=== PATIENT | male | born 1990 | race Two or more races ===

== ENCOUNTER 2025-01-03 11:28 | Emergency (ER) | payer MEDICAID, OTHER ==
[~2025-01-03] VITALS: Ht 175.3 cm; Wt 81.8 kg
--- NOTE | 2025-01-03 11:54 | ED.PDOC ---
HPI (NEURO) HPI Comments This is a 34 year old male presenting to the ED with chief complaint of left sided weakness. Patient reports that he has been experiencing left sided weakness since last night, but noticed it more since this morning. Patient relays that it has been difficult to lift his left knee to get up and his left arm is difficult to raise in comparison to his right. Patient admits to using Crystal Meth on Monday. Patient denies any dizziness, headache, chest pain, SOB, or numbness. Chief Complaint: Left Sided Weakness Time Seen by MD: 11:52 Reviewed Notes: Nurses Notes, Medications, Allergies Information Source: Patient Mode of Arrival: Ambulatory Severity: Moderate Dizziness/Weakness Severity: Does not affect activitie Timing: Hours Duration: Since onset Prehospital treatment: None Weakness Location: (L) Sided Onset: At rest Circumstances: Spontaneous Symptoms: Weakness History of: Substance abuse Associated Signs and Symptoms: Weakness Past Medical History PAST MEDICAL HISTORY: Denies Surgical History: Denies all surgeries Family History Family History: Reviewed,noncontributory to illness, Family hx of DM, Family hx of Cancer Social History Smoker: Cigarettes Alcohol: Denies ETOH Use Drugs: Marijuana, Methamphetamine Lives In: Home Constitutional: denies: chills, diaphoresis, fatigue, fever, malaise, sweats, weakness, others EENTM: denies: blurred vision, double vision, ear bleeding, ear discharge, ear drainage, ear pain, ear ringing, eye pain, eye redness, hearing loss, mouth pain, mouth swelling, nasal discharge, nose bleeding, nose congestion, nose pain, photophobia, tearing, throat pain, throat swelling, voice changes, others Respiratory: denies: cough, hemoptysis, orthopnea, SOB at rest, shortness of breath, SOB with excertion, stridor, wheezing, others Cardiovascular: denies: chest pain, dizzy spells, diaphoresis, Dyspnea on exertion, edema, irregular heart beat, left arm pain, lightheadedness, palpitations, PND, syncope, others Gastrointestinal: denies: abdomen distended, abdominal pain, blood streaked bowels, constipated, diarrhea, dysphagia, difficulty swallowing, hematemesis, melena, nausea, poor appetite, poor fluid intake, rectal bleeding, rectal pain, vomiting, others Genitourinary: denies: burning, dysuria, flank pain, frequency, hematuria, incontinence, penile discharge, penile sore, pain, testicle pain, testicle swelling, urgency, others Neurological: reports: left sided weakness; denies: dizziness, fainting, headache, left sided numbness, numbness, paresthesia, pre-existing deficit, right sided numbness, right sided weakness, seizure, speech problems, tingling, tremors, weakness, others Musculoskeletal: denies: back pain, gout, joint pain, joint swelling, muscle pain, muscle stiffness, neck pain, others Integumetry: denies: bruises, change in color, change in hair/nails, dryness, laceration, lesions, lumps, rash, wounds, others Allergic/Immunocompromised: denies: Difficulty Healing, Frequent Infections, Hives, Itching, others Hematologic/Lymphatic: denies: anemia, blood clots, easy bleeding, easy bruising, swollen glands, others Endocrine: denies: excessive hunger, excessive sweating, excessive thirst, excessive urination, flushing, intolerance to cold, intolerance to heat, unexplained weight gain, unexplained weight loss, others Psychiatric: denies: anxiety, bipolar disorder, depression, hopeless, panic disorder, schizophrenia, sleepless, suicidal, others All Other Systems: Reviewed and Negative Physical Exam General Appearance: Moderate Distress HEENT: Normal ENT Inspection, Pharynx Normal, TMs Normal Neck: Full Range of Motion, Non-Tender, Normal, Normal Inspection Respiratory: Chest Non-Tender, Lungs Clear, No Accessory Muscle Use, No Respiratory Distress, Normal Breath Sounds Cardiovascular: No Edema, No JVD, No Murmur, No Gallop, Normal Peripheral Pulses, Regular Rate/Rhythm Breast Exam: Deferred Gastrointestinal: No Organomegaly, Non Tender, No Pulsatile Mass, Normal Bowel Sounds, Soft Genitalia: Deferred Pelvic: Deferred Rectal: Deferred Extremities: No calf tenderness, Normal capillary refill, No pedal edema Musculoskeletal : Apperance: Normal Neurologic: Alert, 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 Was a procedure done?: No Differential Diagnosis (SZ) Seizure: Syncope, Epilepsy-Status CVA: Lyn's Palsy, CVA X-Ray, Labs, Meds, VS Vital Signs Date Time Temp Pulse Resp B/P (MAP) Pulse Ox O2 Delivery O2 Flow Rate FiO2 01/03/25 12:05 102 16 97 Room Air* 0 21 01/03/25 12:05 98.1 102 16 117/82 (94) 97 98.1 01/03/25 11:54 105 01/03/25 11:41 105 01/03/25 11:31 97.6 122 18 125/86 96 97.6 Lab Test 01/03/25 11:55 01/03/25 11:38 Range/Units White Blood Count 9.9 4.4-10.8 10^3/uL Red Blood Count 5.28 4.5-5.90 10^6/uL Hemoglobin 16.3 13.5-17.5 g/dL Hematocrit 48.4 41.0-53.0 % Mean Corpuscular Volume 91.7 80.0-100.0 fL Mean Corpuscular Hemoglobin 30.9 28.0-32.0 pg Mean Corpuscular Hemoglobin Concent 33.7 32.0-36.0 g/dL Red Cell Distribution Width 13.5 11.8-14.3 % Platelet Count 222 140-450 10^3/uL Mean Platelet Volume 10.3 6.9-10.8 fL Neutrophils (%) (Auto) 64.6 37.0-80.0 % Lymphocytes (%) (Auto) 21.2 10.0-50.0 % Monocytes (%) (Auto) 9.9 0.0-12.0 % Eosinophils (%) (Auto) 3.3 0.0-7.0 % Basophils (%) (Auto) 1.0 0.0-2.0 % Neutrophils # (Auto) 6.4 1.6-8.6 10 ^3/uL Lymphocytes # (Auto) 2.1 0.4-5.4 10 ^3/uL Monocytes # (Auto) 1.0 0-1.3 10 ^3/uL Eosinophils # (Auto) 0.3 0-0.8 10 ^3/uL Basophils # (Auto) 0.1 0-0.2 10 ^3/uL Nucleated Red Blood Cells 0.0 % Sodium Level 142 136-145 mmol/L Potassium Level 3.9 3.5-5.1 mmol/L Chloride Level 106 98-107 mmol/L Carbon Dioxide Level 26 20-31 mmol/L Anion Gap 10 5-15 Blood Urea Nitrogen 7 L 9-23 mg/dL Creatinine 0.83 0.700-1.30 mg/dL Glomerular Filtration Rate Calc 119 >90 mL/min BUN/Creatinine Ratio 8.4 L 10.0-20.0 Serum Glucose 93 74-106 mg/dL Calcium Level 9.3 8.7-10.4 mg/dL POC Glucose 97 70-106 mg/dl IV Hep-Lock was established. After examination of the patient we did order a neuro consult by telemedicine They evaluated the patient and they are concerned that the patient may have had a CVA. CAT scan of the head shows: IMPRESSION: 1. Mild global brain atrophy and chronic ischemic changes without evidence of acute intracranial process. 2. Moderate pansinus disease. The patient's CBC is within normal limits The chemistry panel is within normal limits. The patient then expressed that he wanted to leave. We did tell him that we are ordering a CAT scan of the neck and head. The test was ordered but the patient has now decided to sign out AMA. 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 We advise him that he is most likely having a CVA and leaving would be potentially life-threatening. The patient decided to leave any ways The CT angio of head and neck shows: No sign of any abnormalities. The neurologist recommended that the patient have an MRI with and without contrast following the CTA angio The patient has signed out AMA. Images Reviewed?: Images reviewed and evaluated by me Time of 1ST Reevaluation: 14:11 Reevaluation 1ST: Unchanged Patient Education/Counseling: Diagnosis, Treatment, Prognosis Family Education/Counseling: No Family Present Departure 1 Departure Time of Disposition: 14:13 Impression: Primary Impression: Left-sided weakness Additional Impression: Methamphetamine abuse Disposition: 09 ADMITTED INPATIENT Admit to: Tele Condition: Fair Critical Care Note Critical Care Time?: Yes (45 min-critical care time only) Stability Stability form required: Yes Unstable for transfer: Telemetry monitoring (Telemetry monitoring required), ED Physician Assesment (Clinical assesment) Heart Score Heart Score: Heart Score Response (Comments) Value History N/A 0 EKG N/A 0 Age N/A 0 Risk Factors N/A 0 Troponin N/A 0 Total 0 I personally scribed for WAYNE BRITTON MD ([email or web address]) on 01/03/25 at 11:54. El ectronically submitted by Juan Pena ([email or web address]). WAYNE BRITTON MD Jan 03, 2025 11:54
[2025-01-03 12:05] VITALS: BP 117/82; PULSE 102; RESP 16; TEMP 98.1; O2SAT 97
[2025-01-03 12:20] LABS: Hematocrit 48.4 % (41.0-53.0); Hemoglobin 16.3 g/dL (13.5-17.5); Mean Corpuscular Hemoglobin 30.9 pg (28.0-32.0); Mean Corpuscular Volume 91.7 fL (80.0-100.0); Nucleated Red Blood Cells % 0.0 %
[2025-01-03 12:29] LABS: Chloride 106 mmol/L (98-107); Potassium 3.9 mmol/L (3.5-5.1); Sodium 142 mmol/L (136-145)
[2025-01-03 12:30] LABS: Anion Gap 10 (5-15); Calcium 9.3 mg/dL (8.7-10.4); Carbon Dioxide 26 mmol/L (20-31)
[2025-01-03 12:35] LABS: BUN/Creatinine Ratio 8.4 (10.0-20.0); Glucose 93 mg/dL (74-106)
[2025-01-03 12:36] LABS: Blood Urea Nitrogen 7 mg/dL (9-23)
--- NOTE | 2025-01-03 12:41 | DVH ---
EXAM: CT HEAD WITHOUT CONTRAST HISTORY: left side weakness COMPARISON: None TECHNIQUE: Noncontrast axial CT images of the head were performed. Sagittal and coronal reformatted i mages were obtained. This CT exam was performed using 1 or more of the following dose reduction techn iques: Automated exposure control, adjustment of the mA and/or kv according to patient size, or the u se of iterative reconstruction techniques. Radiation Dose: CTDI volume is 58.13 mGy. Dose-length product is 1042 mGy*cm FINDINGS: No intracranial hemorrhage, mass, midline shift, hydrocephalus, or evidence of acute large vessel inf arct. There is mild patchy decreased attenuation in the periventricular white matter, greatest in the right parietal region. There is mild global brain atrophy. There is fluid and/or mucosal thickening throughout the paranasal sinuses, greatest in the ethmoid sinuses. The bilateral mastoid air cells a nd middle ear spaces are clear. No cranial fracture or scalp edema. IMPRESSION: 1. Mild global brain atrophy and chronic ischemic changes without evidence of acute intracranial proc ess. 2. Moderate pansinus disease.
--- NOTE | 2025-01-03 12:47 | BSKYNEURO ---
[place] Neuro Note # Demographics Consult Type: Acute Stroke Level 2 (4.5-24 hrs) Patient Location: Emergency Room First Name: Juan Last Name: Watson Date of : 1990 Age: 34 Gender: Male Facility: [facility] Time of Initial Page (): 01/03/2025 11:53 First Contact with Site (): 01/03/2025 11:54 # HPI History: 34y M with recent methamphetamine use who presents with L sided weakness. No neck pain 9 PM Last Known Normal: 9PM 01/02 # Scores Time of exam and NIHSS (): 01/03/2025 12:00 Level of Consciousness 1a: [0] = Alert; keenly responsive LOC Questions 1b: [0] = Answers both questions correctly LOC Commands 1c: [0] = Performs both tasks correctly Best Gaze 2: [0] = Normal Visual 3: [0] = No visual loss Facial Palsy 4: [0] = Normal symmetrical movements Motor Arm Left 5a: [1] = Drift Motor Arm Right 5b: [0] = No drift Motor Leg Left 6a: [1] = Drift Motor Leg Right 6b: [0] = No drift Limb Ataxia 7: [0] = Absent Sensory 8: [0] = Normal Best Language 9: [0] = No aphasia Dysarthria 10: [0] = Normal Extinction and Inattention 11: [0] = No abnormality NIHSS Total: 2 # Data Time Head CT personally read by me (): 01/03/2025 12:[address]: - sphere shaped hypodensity in the R high parietal lobe # Assessment Impression: - Weakness Differential Diagnosis: - Appearance on imaging is atypical for acute/subacute stroke, would get MRIb wwo contrast to rule out small subacute hemorrhage vs infectious etiology vs mass lesion # Plan Thrombolytic/Intervention: NOT IV Thrombolysis or IA Intervention candidate Thrombolytic Exclusion: > 4.5 hours Intraarterial Exclusion: - clinical exam not consistent with presence of large vessel occlusion (LVO), can reconsider if LVO found on vascular imaging Modified Vigo Scale (mRS) pre-stroke: [0] = No symptoms at all. Imaging: (urgency: STAT): - MRI Brain with AND without contrast Imaging: (urgency: routine): - CT Angiogram Head and CT Angiogram Neck AND call back with results if abnormal Other: - If patient has any neurological deterioration please call me back immediately - I have discussed my recommendations with the referring provider - telemetry monitoring Additional Recommendations: - If MRIb is consistent with subacute stroke would pursue stroke work up and start ASA/Plavix and statin. Given concern this may not be stroke would hold A/Plavix until MRI is done Disposition: admit # Logistics Attestation of consult completion: The patient is located at: [facility]. Facility staff participated in the visit. I performed this telemedicine visit from my offsite office utilizing interactive 2 way audio and visual telecommunication technology at the request of the onsite emergency room provider. Consent: Verbal consent was obtained from the patient and/or family for this encounter. Total time spent in telemedicine encounter: I spent 22 minutes reviewing clinical data and/or imaging, obtaining history, examining the patient, communicating with the onsite care team, and in preparation of this report. # Demographics First Name: Juan Last Name: Watson Facility: [facility] Electronically signed at 01/03/2025 12:46 ([place] Time) by Manoj Boles, Yes MANOJ BOLES DO Jan 03, 2025 12:47
[2025-01-03] MEDS: IOHEXOL 350 MG/ML 100ML IJ ONE (13:25)
--- NOTE | 2025-01-03 13:58 | DVH ---
INDICATION: CVA COMPARISON: None TECHNIQUE:CTA head and neck with intravenous contrast. 3D/MIP image postprocessing was performed and images were used for interpretation and reporting. Radiation Dose Information: CT Dose: CTDI volume is 22.38 mGy. Dose-length product is 3.16 mGy*cm FINDINGS: Neck: Normal 3-vessel origin left-sided aortic arch. Artifact and adjacent venous structure limits evaluati on of the right subclavian artery. Otherwise, the bilateral subclavian arteries, bilateral common ca rotid arteries and bilateral cervical iCAs unremarkable. Bilateral cervical vertebral arteries are unremarkable with left dominant vertebral artery. CTA head: Bilateral ACAS, anterior communicating artery, bilateral MCAs and bilateral intracranial ICAs are unr emarkable. Bilateral decal maker, bilateral superior cerebellar arteries, basilar artery and bilateral intracranial sophia tebral arteries are unremarkable. The dural venous sinuses opacify normally. No abnormal intracranial enhancement. Pansinus mucoperiosteal thickening. Thyroid gland is unremarkable. The lung apices are clear. IMPRESSION: No hemodynamically significant stenosis, aneurysm or dissection involving the major intracranial and neck vessels.
--- NOTE | 2025-01-03 15:02 | ECG ---
[facility] Test Date: 2025-01-03 Test Time: 11:41:02 Pat Name: AT GLASS Department: ED Room: Gender: M Echo Technician: elizabeth : 1990 Requested By: RAE AVELAR Order Number: [id number] Reading MD: Tylor Conde Measurements Intervals [place] Rate: 105 P: 54 KS: 164 QRS: 125 QRSD: 90 T: 18 QT: 339 QTc: 449 Interpretive Statements Sinus tachycardia Right axis deviation Baseline wander in lead(s) V1,V2,V3 Electronically Signed On 01-06-2025 18:43:42 PDT by Tylor Conde Please click the below link to view image of tracing.
== END 2025-01-03 14:00 | disposition left against medical advice (07) ==
LOC: ER 11:28
DX: R53.1 Weakness (principal); I63.9 Cerebral infarction, unspecified; F15.10 Other stimulant abuse, uncomplicated; F17.210 Nicotine dependence, cigarettes, uncomplicated; F12.90 Cannabis use, unspecified, uncomplicated
CPT/HCPCS: 36415; 70450; 70496; 70498; 80048; 82962; 85025; 93005; 99285; Q9967

== ENCOUNTER 2025-03-20 13:54 | Inpatient (IN) | payer MEDICAID ==
[~2025-03-20] VITALS: Ht 180.3 cm; Wt 103.0 kg
--- NOTE | 2025-03-20 14:41 | ED.PDOC ---
HPI (NEURO) HPI Comments 34 y/o M, with PMHx of polysubstance abuse presents to the ED for CC of facial pain. Patient states, he has been experiencing right -sided facial numbness x3days. Patient reports, experiencing prior episodes in the past with most recent being in December 2024. Patient denies headache, fever, chills, loss of balance, or difficult speech. Chief Complaint: Face pain Time Seen by MD: 14:35 Reviewed Notes: Nurses Notes, Medications, Allergies Information Source: Patient Mode of Arrival: Ambulatory Severity: Moderate Timing: Days Duration: Intermittent Prehospital treatment: None Numbness Location: Facial (right sided) Onset: At rest Circumstances: Spontaneous Symptoms: Numbness Before: Normal During: Awake After: Normal Mentation History of: None Modifying factors: Nothing Associated Signs and Symptoms: Numbness Past Medical History PAST MEDICAL HISTORY: Denies Surgical History: Denies all surgeries Family History Family History: Reviewed,noncontributory to illness, Family hx of DM, Family hx of Cancer Social History Smoker: Cigarettes Alcohol: Denies ETOH Use Drugs: Marijuana, Methamphetamine Lives In: Home Constitutional: denies: chills, diaphoresis, fatigue, fever, malaise, sweats, weakness, others EENTM: denies: blurred vision, double vision, ear bleeding, ear discharge, ear drainage, ear pain, ear ringing, eye pain, eye redness, hearing loss, mouth pain, mouth swelling, nasal discharge, nose bleeding, nose congestion, nose pain, photophobia, tearing, throat pain, throat swelling, voice changes, others Respiratory: denies: cough, hemoptysis, orthopnea, SOB at rest, shortness of breath, SOB with excertion, stridor, wheezing, others Cardiovascular: denies: chest pain, dizzy spells, diaphoresis, Dyspnea on exertion, edema, irregular heart beat, left arm pain, lightheadedness, palpitations, PND, syncope, others Gastrointestinal: denies: abdomen distended, abdominal pain, blood streaked bowels, constipated, diarrhea, dysphagia, difficulty swallowing, hematemesis, melena, nausea, poor appetite, poor fluid intake, rectal bleeding, rectal pain, vomiting, others Genitourinary: denies: burning, dysuria, flank pain, frequency, hematuria, incontinence, penile discharge, penile sore, pain, testicle pain, testicle swelling, urgency, others Neurological: reports: others (right facial numbness); denies: dizziness, fainting, headache, left sided numbness, left sided weakness, numbness, paresthesia, pre-existing deficit, right sided numbness, right sided weakness, seizure, speech problems, tingling, tremors, weakness Musculoskeletal: denies: back pain, gout, joint pain, joint swelling, muscle pain, muscle stiffness, neck pain, others Integumetry: denies: bruises, change in color, change in hair/nails, dryness, laceration, lesions, lumps, rash, wounds, others Allergic/Immunocompromised: denies: Difficulty Healing, Frequent Infections, Hives, Itching, others Hematologic/Lymphatic: denies: anemia, blood clots, easy bleeding, easy bruising, swollen glands, others Endocrine: denies: excessive hunger, excessive sweating, excessive thirst, excessive urination, flushing, intolerance to cold, intolerance to heat, unexplained weight gain, unexplained weight loss, others Psychiatric: denies: anxiety, bipolar disorder, depression, hopeless, panic disorder, schizophrenia, sleepless, suicidal, others All Other Systems: Reviewed and Negative Physical Exam General Appearance: No Apparent Distress, Normal HEENT: Normal ENT Inspection, Pharynx Normal Neck: Full Range of Motion, Non-Tender, Normal, Normal Inspection Respiratory: Chest Non-Tender, Lungs Clear, No Accessory Muscle Use, No Respiratory Distress, Normal Breath Sounds Cardiovascular: No Edema, No Murmur, No Gallop, Normal Peripheral Pulses, Regular Rate/Rhythm Breast Exam: Deferred Gastrointestinal: No Organomegaly, Non Tender, No Pulsatile Mass, Normal Bowel Sounds, Soft Genitalia: Deferred Pelvic: Deferred Rectal: Deferred Extremities: No calf tenderness, Normal capillary refill, Normal inspection, Normal range of motion, Non-tender, No pedal edema Musculoskeletal : Apperance: Normal Neurologic: Alert, engraver signature II-XII nml as Tested, No Motor Deficits, Normal Affect, Normal Mood, No Sensory Deficits Cerebellar Function: Normal Reflexes: Normal Skin: Dry, Normal Color, Warm Lymphatic: No Adenopathy Was a procedure done? Was a procedure done?: No Differential Diagnosis (SZ) General Weakness: Dehydration, Electrolyte imbalance X-Ray, Labs, Meds, VS Vital Signs Date Time Temp Pulse Resp B/P (MAP) Pulse Ox O2 Delivery O2 Flow Rate FiO2 03/20/25 14:02 97.5 100 18 114/79 98 97.5 Lab Test 03/20/25 14:37 Range/Units White Blood Count 8.7 4.4-10.8 10^3/uL Red Blood Count 5.24 4.5-5.90 10^6/uL Hemoglobin 16.4 13.5-17.5 g/dL Hematocrit 49.0 41.0-53.0 % Mean Corpuscular Volume 93.4 80.0-100.0 fL Mean Corpuscular Hemoglobin 31.4 28.0-32.0 pg Mean Corpuscular Hemoglobin Concent 33.6 32.0-36.0 g/dL Red Cell Distribution Width 13.5 11.8-14.3 % Platelet Count 213 140-450 10^3/uL Mean Platelet Volume 10.1 6.9-10.8 fL Neutrophils (%) (Auto) 72.0 37.0-80.0 % Lymphocytes (%) (Auto) 14.8 10.0-50.0 % Monocytes (%) (Auto) 7.3 0.0-12.0 % Eosinophils (%) (Auto) 5.3 0.0-7.0 % Basophils (%) (Auto) 0.6 0.0-2.0 % Neutrophils # (Auto) 6.3 1.6-8.6 10 ^3/uL Lymphocytes # (Auto) 1.3 0.4-5.4 10 ^3/uL Monocytes # (Auto) 0.6 0-1.3 10 ^3/uL Eosinophils # (Auto) 0.5 0-0.8 10 ^3/uL Basophils # (Auto) 0.1 0-0.2 10 ^3/uL Nucleated Red Blood Cells 0.0 % Sodium Level 141 136-145 mmol/L Potassium Level 4.6 3.5-5.1 mmol/L Chloride Level 104 98-107 mmol/L Carbon Dioxide Level 29 20-31 mmol/L Anion Gap 8 5-15 Blood Urea Nitrogen 15 9-23 mg/dL Creatinine 1.00 0.700-1.30 mg/dL Glomerular Filtration Rate Calc 103 >90 mL/min BUN/Creatinine Ratio 15.0 10.0-20.0 Serum Glucose 89 74-106 mg/dL Calcium Level 9.8 8.7-10.4 mg/dL Troponin I High Sensitivity < 3 L </=54 ng/L [address] [address] Ph: [phone] DIAGNOSTIC IMAGING Diagnostic Imaging Report : [id number] Signed PATIENT: TA GLASS AACCT: [id number] UNIT: [id number] : 1990 LOC: ER ROOM / BED: / AGE / SEX: 34 / M ADM STATUS: REG ER SERVICE 1426 ORDERING PHYSICIAN: CELINE WALTERS MD PROCEDURE(s): CXRP - CHEST PORTABLE REASON: facial numbness ORDER NUMBER(s): [id number], ACCESSION NUMBER(s): [id number] CHEST RADIOGRAPH Indication: facial numbness Technique: Single frontal view of the chest was obtained Comparison: None FINDINGS: Lines and Tubes: None Lungs: No focal consolidation. Pleura: No effusion. No pneumothorax. Cardiomediastinal contours: Cardiac size upper limits of normal may be due to positioning or technique. Bones: No acute osseous abnormality. IMPRESSION: 1. No acute cardiopulmonary disease. ATED BY: RAJINDER ANNA Jr., DO DICTATED DATE/TIME: 03/20/251510 SIGNED BY: RAJINDER ANNA Jr., DO SIGNED DATE/TIME: 03/20/251510 CC: [address] [address] Ph: [phone] DIAGNOSTIC IMAGING Diagnostic Imaging Report : [id number] Signed PATIENT: TA GLASS AACCT: [id number] UNIT: [id number] : 1990 LOC: ER ROOM / BED: / AGE / SEX: 34 / M ADM STATUS: REG ER SERVICE 1436 ORDERING PHYSICIAN: CELINE WALTERS MD PROCEDURE(s): HWOCT - HEAD WITHOUT CONTRAST REASON: facial numbness ORDER NUMBER(s): [id number], ACCESSION NUMBER(s): [id number] EXAM: CT HEAD WITHOUT CONTRAST INDICATION: facial numbness TECHNIQUE: CT images of the head were obtained without administration of IV contrast. CT scans at this facility use dose modulation, iterative reconstruction, and/or weight based dosing when appropriate to reduce radiation dose to as low as reasonably achievable. COMPARISON: CT ANGIO HEAD/NECK on DOS: 01/03/25 FINDINGS: PARENCHYMA: No acute hemorrhage. There is no mass effect, midline shift, or herniation. There is preservation of the avila white differentiation. Small area of hypoattenuation of the right posterior hinson radiata. consider correlation with clinical exam. Consider further evaluation with MRI if clinically indicated. Differential also includes demyelination VENTRICLES: No hydrocephalus. EXTRA-AXIAL SPACES: No extra-axial fluid collections. OTHER: The bony structures are intact. Moderate scattered paranasal sinus mucosal thickening. IMPRESSION: 1. No CT evidence of an acute intracranial abnormality. Small indeterminate area of hypoattenuation of the right posterior hinson radiata. consider correlation with clinical exam. Consider further evaluation with MRI if clinically indicated. Differential includes demyelination given patient's age. ATED BY: JEROME UREÑA MD DICTATED DATE/TIME: 03/20/25 153 SIGNED BY: JEROME UREÑA MD SIGNED DATE/TIME: 03/20/25 153 CC: Time of 1ST Reevaluation: 15:05 Reevaluation 1ST: Unchanged Patient Education/Counseling: Diagnosis, Treatment Family Education/Counseling: No Family Present Departure 1 Departure Time of Disposition: 17:56 (CT head and x-ray and EKG he had labs are benign.Patient with suspected TIA possible multiple sclerosis and numbness tingling of the face) Impression: Primary Impression: Facial numbness Additional Impression: Generalized weakness Disposition: ADMITTED INPATIENT Admit to: Med Surg Condition: Guarded Critical Care Note Critical Care Time?: No Stability Stability form required: No Heart Score Heart Score: Heart Score Response (Comments) Value History N/A 0 EKG N/A 0 Age N/A 0 Risk Factors N/A 0 Troponin N/A 0 Total 0 I personally scribed for CELINE WALTERS MD ([email or web address]) on 03/20/25 at 14:41. Electronically submitted by Neyda Denson ([email or web address]). I personally scribed for CELINE WALTERS MD ([email or web address]) on 03/20/25 at 15:38. Electronically submitted by Neyda Denson ([email or web address]). I personally scribed for CELINE WALTERS MD ([email or web address]) on 03/20/25 at 15:39. Electronically submitted by Neyda Denson ([email or web address]). CELINE WALTERS MD Mar 20, 2025 14:41
[2025-03-20 14:45] LABS: Hematocrit 49.0 % (41.0-53.0); Hemoglobin 16.4 g/dL (13.5-17.5); Mean Corpuscular Hemoglobin 31.4 pg (28.0-32.0); Mean Corpuscular Volume 93.4 fL (80.0-100.0); Nucleated Red Blood Cells % 0.0 %
[2025-03-20 14:59] LABS: Chloride 104 mmol/L (98-107); Potassium 4.6 mmol/L (3.5-5.1); Sodium 141 mmol/L (136-145)
[2025-03-20 15:00] LABS: Anion Gap 8 (5-15); Carbon Dioxide 29 mmol/L (20-31)
[2025-03-20 15:01] LABS: Calcium 9.8 mg/dL (8.7-10.4)
[2025-03-20 15:05] LABS: BUN/Creatinine Ratio 15.0 (10.0-20.0); Blood Urea Nitrogen 15 mg/dL (9-23); Glucose 89 mg/dL (74-106)
--- NOTE | 2025-03-20 15:13 | DVH ---
CHEST RADIOGRAPH Indication: facial numbness Technique: Single frontal view of the chest was obtained Comparison: None FINDINGS: Lines and Tubes: None Lungs: No focal consolidation. Pleura: No effusion. No pneumothorax. Cardiomediastinal contours: Cardiac size upper limits of normal may be due to positioning or technique. Bones: No acute osseous abnormality. IMPRESSION: 1. No acute cardiopulmonary disease.
--- NOTE | 2025-03-20 15:32 | DVH ---
EXAM: CT HEAD WITHOUT CONTRAST INDICATION: facial numbness TECHNIQUE: CT images of the head were obtained without administration of IV contrast. CT scans at this facility use dose modulation, iterative reconstruction, and/or weight based dosing when appropriate to reduce radiation dose to as low as reasonably achievable. COMPARISON: CT ANGIO HEAD/NECK on DOS: 01/03/25 FINDINGS: PARENCHYMA: No acute hemorrhage. There is no mass effect, midline shift, or herniation. There is preservation of the avila white differentiation. Small area of hypoattenuation of the right posterior hinosn radiata. consider correlation with clinical exam. Consider further evaluation with MRI if clinically indicated. Differential also includes demyelination VENTRICLES: No hydrocephalus. EXTRA-AXIAL SPACES: No extra-axial fluid collections. OTHER: The bony structures are intact. Moderate scattered paranasal sinus mucosal thickening. IMPRESSION: 1. No CT evidence of an acute intracranial abnormality. Small indeterminate area of hypoattenuation of the right posterior hinson radiata. consider correlation with clinical exam. Consider further evaluation with MRI if clinically indicated. Differential includes demyelination given patient's age.
[2025-03-20] MEDS ORDERED: ACETAMINOPHEN 325 MG TAB PO PRN (19:15)
--- NOTE | 2025-03-20 20:03 | DVHHP2 ---
YESENIA TejadaSHABNAM RESIDENT 03/20/25 2003: History of Present Illness History of Present Illness 34-year-old male with no significant past medical history who presents after three days of intermittent facial numbness. He denies headache, vision changes, fever, chills, weakness, gait imbalance, or speech difficulty. He reports recent consumption of marijuana and methamphetamines; urine drug screen is positive for methamphetamines, benzodiazepines, and cannabinoids. No prior episodes. Physical exam in the ED is normal, including full neurologic exam. Labs including CBC and BMP are unremarkable. Head CT is normal. He is admitted for neurologic evaluation to rule out a transient ischemic process, though the presentation is more consistent with effects related to polysubstance use. PMHx: None reported. PSHx: None reported. Social History: Polysubstance use including marijuana and methamphetamines. Denies tobacco and alcohol use when asked. Lives at home; no occupational exposures. ROS: Negative except as noted in HPI. Review of Systems Allergies: Coded Allergies: NO KNOWN ALLERGIES (Unverified , 01/03/25) Medications Current Medications Medications Dose Ordered Sig/Chris Route Start Time Stop Time Status Last Admin Dose Admin Sodium Chloride 1,000 ml @ 60 mls/hr [id number] IV 03/20/25 19:15 Acetaminophen 650 mg Q6HP PRN PO 03/20/25 19:15 Exam Vital Signs Vital Signs Date Time Temp Pulse Resp B/P (MAP) Pulse Ox O2 Delivery O2 Flow Rate FiO2 03/20/25 18:14 97 Room Air* 0 21 03/20/25 18:06 97.6 102 17 116/82 (93) 97.6 Exam General: Alert, in no acute distress. HEENT: Normal. Neck: Supple. CV: Regular rate and rhythm. Resp: Clear to auscultation. Abd: Soft, nontender. Ext: No edema. Neuro: Cranial nerves intact, no focal deficits, normal gait and coordination. Skin: Warm, dry. Labs/Xrays Labs Test 03/20/25 19:48 03/20/25 14:37 Range/Units White Blood Count 8.7 4.4-10.8 10^3/uL Red Blood Count 5.24 4.5-5.90 10^6/uL Hemoglobin 16.4 13.5-17.5 g/dL Hematocrit 49.0 41.0-53.0 % Mean Corpuscular Volume 93.4 80.0-100.0 fL Mean Corpuscular Hemoglobin 31.4 28.0-32.0 pg Mean Corpuscular Hemoglobin Concent 33.6 32.0-36.0 g/dL Red Cell Distribution Width 13.5 11.8-14.3 % Platelet Count 213 140-450 10^3/uL Mean Platelet Volume 10.1 6.9-10.8 fL Neutrophils (%) (Auto) 72.0 37.0-80.0 % Lymphocytes (%) (Auto) 14.8 10.0-50.0 % Monocytes (%) (Auto) 7.3 0.0-12.0 % Eosinophils (%) (Auto) 5.3 0.0-7.0 % Basophils (%) (Auto) 0.6 0.0-2.0 % Neutrophils # (Auto) 6.3 1.6-8.6 10 ^3/uL Lymphocytes # (Auto) 1.3 0.4-5.4 10 ^3/uL Monocytes # (Auto) 0.6 0-1.3 10 ^3/uL Eosinophils # (Auto) 0.5 0-0.8 10 ^3/uL Basophils # (Auto) 0.1 0-0.2 10 ^3/uL Nucleated Red Blood Cells 0.0 % Sodium Level 141 136-145 mmol/L Potassium Level 4.6 3.5-5.1 mmol/L Chloride Level 104 98-107 mmol/L Carbon Dioxide Level 29 20-31 mmol/L Anion Gap 8 5-15 Blood Urea Nitrogen 15 9-23 mg/dL Creatinine 1.00 0.700-1.30 mg/dL Glomerular Filtration Rate Calc 103 >90 mL/min BUN/Creatinine Ratio 15.0 10.0-20.0 Serum Glucose 89 74-106 mg/dL Hemoglobin A1c 5.4 <5.7 % A1C Calcium Level 9.8 8.7-10.4 mg/dL Troponin I High Sensitivity < 3 L </=54 ng/L SEPSIS Sepsis Screen Date sepsis recognized/suspect: Mar 20, 2025 Time Sepsis recognized/suspect: 1825 Recent Procedure: No On Antibiotic Therapy: No Respiratory Rate >20: No Heart Rate >90: No Temp<36 C (96.8 F) or >38.3 C: No SBP <90 or MAP <65 mmHG: No New Acute Mental Status Change: No Is the patient on CPAP, BIPAP,: No Physician Orders Urinalysis (03/20/25 14:26) Chest Portable (03/20/25 14:26) Head Without Contrast (03/20/25 14:36) Admit (03/20/25 19:08) Code Status (03/20/25 19:08) Vital Signs .PER UNIT PROTOCOL (03/20/25 19:08) Review Orders With Adm.Md (03/20/25 19:08) Regular Diet (03/21/25 Breakfast) Sodium Chloride 0.9% (03/20/25 19:15) Acetaminophen Tablet (Tylenol Tablet) (03/20/25 19:15) Notify Md Of Changes From Base (03/20/25 19:08) Advance Directive (03/20/25 19:08) Patient Condition (03/20/25 19:08) Allergies (03/20/25 19:08) Drug Screen (03/20/25 19:08) Oxygen By Nasal Cannula (03/20/25 19:08) Stat Ekg For Chest Pain (03/20/25 19:08) Notify Md Of Changes From Base (03/20/25 19:08) Label Designer For 24 Hours (03/20/25 19:08) Emergency Dysrhythmia Protocol (03/20/25 19:08) Rhythm Strips Once Every Shift (03/20/25 19:08) Vital Signs Date Time Temp Pulse Resp B/P (MAP) Pulse Ox O2 Delivery O2 Flow Rate FiO2 03/20/25 18:14 97 Room Air* 0 21 03/20/25 18:06 97.6 102 17 116/82 (93) 99 97.6 03/20/25 14:02 97.5 100 18 114/79 98 97.5 Laboratory Tests Test 03/20/25 14:37 White Blood Count 8.7 10^3/uL (4.4-10.8) Assessment/Plan Assessment/Plan # Rule out Transient ischemic attack Normal neurologic exam and normal HCT, but facial paresthesias prompt admission for neurologic observation. Maintain normal BP parameters and monitor for any new neurologic deficits. # Polysubstance abuse Likely contributor to his sensory complaints given methamphetamine and cannabinoid exposure. Supportive care with IV fluids and symptomatic management. Counseling regarding substance use # Benzodiazepine exposure Positive urine tox without clear source; patient clinically stable. Continue monitoring for sedation, respiratory depression, or withdrawal symptoms # Cannabis use disorder Chronic use with contribution to current presentation possible. Provide education and outpatient follow-up for substance-use counseling. Case discussed with Dr Jackson Plan discussed with: Patient, Other My Orders Orders - SHABNAM MURO RESIDENT Procedure Category Date Status Time Admit ADMIT 03/20/25 Transmitted 19:08 Code Status CODE 03/20/25 Transmitted 19:08 Vital Signs [facility] 03/20/25 In Process 19:08 Review Orders With [facility] 03/20/25 In Process Adm.Md 19:08 Regular Diet DIET 03/21/25 Transmitted Breakfast Sodium Chloride 0.9% [facility] 03/20/25 In Process 19:15 Acetaminophen Tablet [facility] 03/20/25 In Process (Tylenol Tablet) 19:15 Notify Md Of Changes [facility] 03/20/25 In Process From Base 19:08 Advance Directive [facility] 03/20/25 In Process 19:08 Patient Condition ORDERS 03/20/25 Transmitted 19:08 Allergies [facility] 03/20/25 In Process 19:08 Drug Screen LAB 03/20/25 In Process 19:08 Oxygen By Nasal RT 03/20/25 Transmitted Cannula 19:08 Stat Ekg For Chest [facility] 03/20/25 In Process Pain 19:08 Notify Md Of Changes [facility] 03/20/25 In Process From Base 19:08 Label Designer For [facility] 03/20/25 In Process 24 Hours 19:08 Emergency Dysrhythmia [facility] 03/20/25 In Process Protocol 19:08 Rhythm Strips Once [facility] 03/20/25 In Process Every Shift 19:08 Date of Service: Mar 20, 2025 Billing Provider: MICK JACKSON MD Common Visit Codes: [id number] INP/OBS CARE (HIGH) MICK JACKSON MD 03/21/25 1504: Review of Systems Allergies: Coded Allergies: NO KNOWN ALLERGIES (Unverified , 01/03/25) Common Visit Codes: [id number] INP/OBS CARE (HIGH) Secondary Visit Codes: [id number] CARE PLAN 30 MINUTES SHABNAM MURO Mar 20, 2025 20:03 MICK JACKSON MD Mar 21, 2025 15:04
[2025-03-20 20:23] LABS: Benzodiazephine Screen, Urine Pos (NEGATIVE)
[2025-03-20 20:24] LABS: Cannabinoid Screen, Urine Pos (NEGATIVE)
[2025-03-20 20:50] VITALS: BP 115/58; PULSE 89; RESP 18; TEMP 98.2; O2SAT 98
[2025-03-20 21:18] LABS: Amphetamine Screen, Urine Pos (NEGATIVE); Barbiturate Scree,Urine Neg (NEGATIVE); Cocaine Screen, Urine Neg (NEGATIVE); Opiate Scree,Urine Neg (NEGATIVE); Phencyclidine Screen, Urine Neg (NEGATIVE)
[2025-03-20 21:21] LABS: Urine Protein, UAD TRACE (Negative)
[2025-03-20 21:47] VITALS: BP 120/72; PULSE 90; PULSE 94; RESP 18; TEMP 98.4; O2SAT 98
[2025-03-21 01:00] VITALS: BP 98/68; PULSE 83; RESP 18; TEMP 98.2; O2SAT 100
[2025-03-21 03:37] LABS: Hematocrit 46.6 % (41.0-53.0); Hemoglobin 15.4 g/dL (13.5-17.5); Mean Corpuscular Hemoglobin 31.2 pg (28.0-32.0); Mean Corpuscular Volume 94.4 fL (80.0-100.0); Nucleated Red Blood Cells % 0.1 %
[2025-03-21 03:45] VITALS: BP 112/73; PULSE 72; RESP 17; TEMP 98.2; O2SAT 96
[2025-03-21] MEDS: SODIUM CHLORIDE 0.9% 1,000 ML IV SCH (03:45)
[2025-03-21 03:51] LABS: Alanine Aminotransferase 29 U/L (7-40); Albumin 4.2 g/dL (3.2-4.8); Alkaline Phosphatase 65 U/L (46-116); Anion Gap 7 (5-15); BUN/Creatinine Ratio 14.1 (10.0-20.0); Bilirubin, Total 0.9 mg/dL (0.2-1.0); Blood Urea Nitrogen 14 mg/dL (9-23); Calcium 9.3 mg/dL (8.7-10.4); Carbon Dioxide 31 mmol/L (20-31); Chloride 103 mmol/L (98-107); Glucose 101 mg/dL (74-106); Potassium 4.2 mmol/L (3.5-5.1); Sodium 141 mmol/L (136-145); Total Protein 6.8 g/dL (5.7-8.2)
[2025-03-21 05:00] VITALS: BP 102/64; PULSE 86; RESP 18; TEMP 98.8; O2SAT 94
[2025-03-21] MEDS: ATORVASTATIN 20 MG TAB PO SCH (08:30)
[2025-03-21] MEDS: PANTOPRAZOLE 40 MG TAB PO SCH (08:30)
[2025-03-21 09:00] VITALS: BP 102/69; PULSE 86; RESP 20; TEMP 98; O2SAT 94
[2025-03-21] MEDS ORDERED: FAMO-12 PO (12:19)
[2025-03-21] MEDS ORDERED: ATOR20TA50 PO (12:19)
[2025-03-21] MEDS ORDERED: ASPI-498 PO (12:19)
[2025-03-21 12:51] VITALS: TEMP 36.7
--- NOTE | 2025-03-21 15:48 | DVHDSRES ---
Discharge Summary Date of Admission Resident Creating Document: SANDOR ALCALA RESIDENT Mar 20, 2025 at 19:08 Date of Discharge: Mar 21, 2025 Admitting Diagnosis Suspected TIA Labs/Diagnostic Data: Laboratory Results Test 03/21/25 03:13 03/20/25 19:48 03/20/25 14:37 White Blood Count 8.7 10^3/uL (4.4-10.8) Red Blood Count 4.94 10^6/uL (4.5-5.90) Hemoglobin 15.4 g/dL (13.5-17.5) Hematocrit 46.6 % (41.0-53.0) Mean Corpuscular Volume 94.4 fL (80.0-100.0) Mean Corpuscular Hemoglobin 31.2 pg (28.0-32.0) Mean Corpuscular Hemoglobin Concent 33.0 g/dL (32.0-36.0) Red Cell Distribution Width 13.6 % (11.8-14.3) Platelet Count 196 10^3/uL (140-450) Mean Platelet Volume 10.6 fL (6.9-10.8) Neutrophils (%) (Auto) 49.2 % (37.0-80.0) Lymphocytes (%) (Auto) 32.6 % (10.0-50.0) Monocytes (%) (Auto) 10.7 % (0.0-12.0) Eosinophils (%) (Auto) 6.5 % (0.0-7.0) Basophils (%) (Auto) 1.0 % (0.0-2.0) Neutrophils # (Auto) 4.3 10 ^3/uL (1.6-8.6) Lymphocytes # (Auto) 2.8 10 ^3/uL (0.4-5.4) Monocytes # (Auto) 0.9 10 ^3/uL (0-1.3) Eosinophils # (Auto) 0.6 10 ^3/uL (0-0.8) Basophils # (Auto) 0.1 10 ^3/uL (0-0.2) Nucleated Red Blood Cells 0.1 % Sodium Level 141 mmol/L (136-145) Potassium Level 4.2 mmol/L (3.5-5.1) Chloride Level 103 mmol/L (98-107) Carbon Dioxide Level 31 mmol/L (20-31) Anion Gap 7 (5-15) Blood Urea Nitrogen 14 mg/dL (9-23) Creatinine 0.99 mg/dL (0.700-1.30) Glomerular Filtration Rate Calc 104 mL/min (>90) BUN/Creatinine Ratio 14.1 (10.0-20.0) Serum Glucose 101 mg/dL (74-106) Calcium Level 9.3 mg/dL (8.7-10.4) Magnesium Level 2.2 mg/dL (1.6-2.6) Total Bilirubin 0.9 mg/dL (0.2-1.0) Aspartate Amino Transferase (AST) 18 U/L (13-40) Alanine Aminotransferase (ALT) 29 U/L (7-40) Alkaline Phosphatase 65 U/L (46-116) Total Protein 6.8 g/dL (5.7-8.2) Albumin 4.2 g/dL (3.2-4.8) Vitamin B12 Level 963 pg/mL (211-911) Vitamin D 25-Hydroxy 25.3 ng/mL (30.0-100) Folic Acid 15.49 ng/mL (>5.38) Thyroid Stimulating Hormone (TSH) 0.37 uIU/mL (0.55-4.78) Urine Color Yellow (Yellow) Urine Clarity Turbid (Clear) Urine pH 5.5 (5.0-9.0) Urine Specific [place] 1.022 (1.001-1.035) Urine Protein Trace (Negative) Urine Ketones 2+ (Negative) Urine Blood Negative /uL (Negative) Urine Nitrite Negative (Negative) Urine Bilirubin Negative (Negative) Urine Urobilinogen Normal mg/dL (Negative) Urine Leukocyte Esterase Negative /uL (Negative) Urine RBC 2 /hpf (0 - 3) Urine Microscopic WBC 5 /HPF (0-3) Urine Squamous Epithelial Cells None seen /hpf (<5) Urine Bacteria None seen /hpf (None Seen) Urine Mucus Many (None Seen) Urine Glucose Normal mg/dL (Normal) Urine Opiates Screen Neg (NEGATIVE) Urine Fentanyl Screen Neg (NEGATIVE) Urine Barbiturates Screen Neg (NEGATIVE) Urine Phencyclidine Screen Neg (NEGATIVE) Urine Amphetamines Screen Pos (NEGATIVE) Urine Benzodiazepines Screen Pos (NEGATIVE) Urine Cocaine Screen Neg (NEGATIVE) Urine Cannabinoids Screen Pos (NEGATIVE) Hemoglobin A1c 5.4 % A1C (<5.7) Troponin I High Sensitivity < 3 ng/L (</=54) Other Laboratory Tests 03/21/25 03:13 Brief Hx & Hospital Course: 34-year-old male with no significant past medical history who presents after three days of intermittent facial numbness. He denies headache, vision changes, fever, chills, weakness, gait imbalance, or speech difficulty. He reports recent consumption of marijuana and methamphetamines; urine drug screen is positive for methamphetamines, benzodiazepines, and cannabinoids. No prior episodes. Physical exam in the ED is normal, including full neurologic exam. Labs including CBC and BMP are unremarkable. Head CT showed no intracranial pathology. UDS positive for methamphetamine, benzos, cannabinoids. TSH 0.3, vitamin-D 25.3, urinalysis negative for UTI. Neurology examination no deficits noted, patient was treated conservatively. patient was discharged with aspirin 81 mg p.o. daily and atorvastatin 20 mg p.o. q.h.s.. Patient was advised to follow up DC clinic/PCP/Neurology. Patient was hemodynamically stable on discharge. All questions answered. General: Alert, in no acute distress. HEENT: Normal. Neck: Supple. CV: Regular rate and rhythm. Resp: Clear to auscultation. Abd: Soft, nontender. Ext: No edema. Neuro: Cranial nerves intact, no focal deficits, normal gait and coordination. Plan of care discussed with Dr. Jackson Operations or Procedures [place] [id number] Ph: [phone] DIAGNOSTIC IMAGING Diagnostic Imaging Report : [id number] Signed PATIENT: TA GLASS AACCT: [id number] UNIT: [id number] : 1990 LOC: ER ROOM / BED: / AGE / SEX: 34 / M ADM STATUS: REG ER SERVICE [id number] ORDERING PHYSICIAN: CELINE WALTERS MD PROCEDURE(s): CXRP - CHEST PORTABLE REASON: facial numbness ORDER NUMBER(s): [id number], ACCESSION NUMBER(s): [id number] CHEST RADIOGRAPH Indication: facial numbness Technique: Single frontal view of the chest was obtained Comparison: None FINDINGS: Lines and Tubes: None Lungs: No focal consolidation. Pleura: No effusion. No pneumothorax. Cardiomediastinal contours: Cardiac size upper limits of normal may be due to positioning or technique. Bones: No acute osseous abnormality. IMPRESSION: 1. No acute cardiopulmonary disease. ATED BY: RAJINDER ANNA Jr., DO DICTATED DATE/TIME: 03/20/251510 SIGNED BY: RAJINDER ANNA Jr., SIGNED DATE/TIME: 03/20/251510 CC: [place] [id number] Ph: [phone] DIAGNOSTIC IMAGING Diagnostic Imaging Report : [id number] Signed PATIENT: TA GLASS AACCT: [id number] UNIT: [id number] : 1990 LOC: ER ROOM / BED: / AGE / SEX: 34 / M ADM STATUS: REG ER SERVICE 35 ORDERING PHYSICIAN: CELINE WALTERS MD PROCEDURE(s): HWOCT - HEAD WITHOUT CONTRAST REASON: facial numbness ORDER NUMBER(s): [id number], ACCESSION NUMBER(s): [id number] EXAM: CT HEAD WITHOUT CONTRAST INDICATION: facial numbness TECHNIQUE: CT images of the head were obtained without administration of IV contrast. CT scans at this facility use dose modulation, iterative reconstruction, and/or weight based dosing when appropriate to reduce radiation dose to as low as reasonably achievable. COMPARISON: CT ANGIO HEAD/NECK on DOS: 01/03/25 FINDINGS: PARENCHYMA: No acute hemorrhage. There is no mass effect, midline shift, or herniation. There is preservation of the avila white differentiation. Small area of hypoattenuation of the right posterior hinson radiata. consider correlation with clinical exam. Consider further evaluation with MRI if clinically indicated. Differential also includes demyelination VENTRICLES: No hydrocephalus. EXTRA-AXIAL SPACES: No extra-axial fluid collections. OTHER: The bony structures are intact. Moderate scattered paranasal sinus mucosal thickening. IMPRESSION: 1. No CT evidence of an acute intracranial abnormality. Small indeterminate area of hypoattenuation of the right posterior hinson radiata. consider correlation with clinical exam. Consider further evaluation with MRI if clinically indicated. Differential includes demyelination given patient's age. ATED BY: JEROME UREÑA MD DICTATED DATE/TIME: 03/20/251529 SIGNED BY: JEROME UREÑA MD SIGNED DATE/TIME: 03/20/251529 CC: Condition at Discharge: Stable Final Diagnosis/Problems List suspected TIA No acute hemorrhage Substance abuse methamphetamine, cannabinoids, benzos Vitamin-D deficiency Probable sick euthyroid syndrome Discharge Disposition: Home Discharge Instruct/Medications Diet: Cardiac 2g Na,low cholest Activity: No Restrictions, As Tolerated Follow Up/Referral: DC CLINIC PCP NEUROLOGY Medications: PRESCRIBED Scheduled Aspirin (Aspirin 81), 81 MG PO DAILY Atorvastatin Calcium (Atorvastatin Calcium), 1 TAB PO DAILY Famotidine (Famotidine), 20 MG PO BID Discharge Statement: "Patient was advised to return to the ER or call 911 if any headaches, dizziness, shortness of breath, chest pain, abdominal pain, bleeding, fevers, or worsening of medical condition. Patient was counseled about treatment plan, medications, possible side effects, patientverbalized understanding. All questions were answered to the best of my ability. This discharge took greater then 30 minutes in planning, reviewing documentation, counseling the patient, and discussing with other team members." ASSESSMENT ASSESSMENT Assessment suspected TIA No acute hemorrhage Visit Coding STANDARD RES Billing Provider: MICK JACKSON MD Date of Service if different f: Mar 21, 2025 Common Visit Codes: 26321-JHU/OBS DISCH DAY >30min SANDOR ALCALA RESIDENT Mar 21, 2025 15:48 BRETT WILSON RESIDENT Mar 21, 2025 18:26
[2025-03-21 19:20] LABS: Free T4 (Free Thyroxine) 1.33 ng/dL (0.89-1.76)
--- NOTE | 2025-03-22 10:37 | ECG ---
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
== END 2025-03-21 15:30 | disposition home or self-care (01) | DRG 47 ==
LOC: ER 13:54 → OVERFLOW 19:08 → WEST WING 03-21 03:34
PROVIDERS: ADMIT Internal Medicine Geriatric Medicine; ATTEND Internal Medicine Geriatric Medicine
DX: G45.9 Transient cerebral ischemic attack, unspecified (principal); E07.81 Sick-euthyroid syndrome; F12.10 Cannabis abuse, uncomplicated; F17.210 Nicotine dependence, cigarettes, uncomplicated; E55.9 Vitamin D deficiency, unspecified; F15.10 Other stimulant abuse, uncomplicated; Z83.3 Family history of diabetes mellitus; Z80.9 Family history of malignant neoplasm, unspecified; Z71.51 Drug abuse counseling and surveillance of drug abuser
CPT/HCPCS: 36415; 70450; 71045; 80048; 80053; 80307; 81001; 82306; 82607; 82746; 83036; 83735; 84439; 84443; 84480; 84484; 85025; 93005; G0378